=== PATIENT | female | born 1980 | race African-American/Black ===

== ENCOUNTER 2020-06-26 17:58 | Emergency (ER) | payer MEDICAID, OTHER ==
[~2020-06-26] VITALS: Ht 170.2 cm; Wt 91.0 kg
[2020-06-26 18:02] VITALS: BP 179/127
== END 2020-06-26 18:22 | disposition left against medical advice (07) ==
LOC: ER 17:58
DX: Z53.21 Procedure and treatment not carried out due to patient leaving prior to being seen by health care provider (principal)